=== PATIENT | male | born 2000 | race Caucasian/White ===

== ENCOUNTER 2024-10-30 08:37 | Outpatient (CLI) | payer OTHER, SELFPAY ==
--- NOTE | 2024-10-30 09:00 | CRLHL7_ITS ---
For Patients: As a result of the Century Cures Act, medical imaging exams and procedure reports are released immediately into your electronic medical record. You may view this report before your referring provider. If you have questions, please contact your health care provider. Indication: Chronic sinusitis, drainage more on the left side Technique: Volumetric multidetector CT images of the paranasal sinuses were obtained without the administration of IV contrast. Comparison: None available Findings: The partially visualized brain parenchyma is normal in attenuation with no evidence of midline shift or fluid collection. The frontal sinus and frontal recesses are well aerated. The ethmoid air cells are well aerated. The sphenoid sinus is well aerated. There is minimal chronic polypoid mucosal thickening in the iumr-ifqbbfb-fcen-right mastoid air cells. There is moderate effacement of the brit-cyfxhxg-dnuo-right ostiomeatal unit secondary to large aerated Brenda cells. There is mild leftward nasal septal deviation of the posterior bony nasal septum. Otherwise the nasal passages are clear. Minimal aeration of the bilateral middle turbinates. There is no evidence of acute osseous abnormality. Impression: 1. Minimal chronic polypoid mucosal thickening of the maxillary sinuses without evidence of air-fluid level to suggest acute sinusitis. 2. Moderate bilateral Brenda cells with effacement of the bilateral ostiomeatal units. Please note that all CT scans at this facility use dose modulation, iterative reconstruction, and/or weight-based dosing when appropriate to reduce radiation dose to as low as reasonably achievable. Dictated by Ronnie Pollard MD @ 10/30/2024 9:39:52 AM (Electronically Signed)
== END 2024-10-30 08:38 | disposition home or self-care (01) ==
LOC: CT 08:39
PROVIDERS: Visit Provider Otolaryngology
DX: J32.9 Chronic sinusitis, unspecified (principal); J32.0 Chronic maxillary sinusitis
CPT/HCPCS: 70486

== ENCOUNTER 2024-11-22 10:32 | Day surgery (SDC) | payer OTHER, SELFPAY ==
[2024-11-22] VITALS (13 sets, daily range): BP systolic 117–143; BP diastolic 80–99; PULSE 53–84; RESP 12–16; TEMP 36.2–37.1; O2SAT 94–98; BMI 25.0
[2024-11-22] MEDS: LACTATED RINGERS 500 ML 500 ML 100 ML IV (11:00)
[2024-11-22] MEDS: SODIUM CHLORIDE 0.9 % (FLUSH) 10 ML SYRINGE IVF (11:14)
[2024-11-22] MEDS: OXYMETAZOLINE 0.05% NASAL SPRAY 2 SPRAY NOSTRIL-B (11:35)
[2024-11-22] MEDS: MUPIROCIN 1 GM PACKET 1 APPLIC TOPICAL (12:30)
[2024-11-22] MEDS: BUPIVACAINE 0.5%/EPINEPHRINE 0.9 MG (30.9 ML) INJECTION (12:45)
--- NOTE | 2024-11-22 12:58 | P.ENTPROC_ITS ---
Procedure Note Date of procedure: 11/22/24 Procedure: Preop diagnosis nasal obstruction deviated septum right inferior turbinate hypertrophy bilateral middle turbinate mary bullosa Postop diagnosis same Procedure nasal septoplasty, submucous partial resection right inferior turbinate, endoscopic partial resection bilateral middle turbinate mary bullosa Under general trach anesthesia patient was prepped and draped usual fashion nose decongested injected. A right hemitransfixion incision was made left anterior tunnels were created. Right anterior tunnels were also created. The anterior septum was quite tortuous and curled. I was able to unfurl it with only minimal resection of an anterior strip of 1 mm. The incision was closed with 2 of 5 0 Vicryl short-acting sutures. In addition there was a left area 4 5 impaction. The mucosa overlying this was elevated and the impaction infractured and then removed. A piece was trimmed and returned to intraseptal space in the flap laid back down. Silastic stents were secured with 3-0 nylon. A stab incision was made in the anterior of the right inferior turbinate a tunnel created with a Crockett dissector. The mary bone was outfractured a conservative anterior submucous resection performed. The Coblation Wand was us ed for hemostasis and to cauterize intramurally along the inferior 10% Further main or procedure 0 degree endoscopy was available. The left middle turbinate mary was incised along its inferolateral aspect in the bone infractured and the turbinate crushed with the Vignesh forceps. This was repeated on the left side in identical fashion. Merocel packing coated in Bactroban was trimmed and placed in each side of the nose. Strings were taped externally to facilitate removal. The patient procedure was taken recovery satisfactory condition. Blood loss was less than 10 mL. Surgeon: Krzysztof Mayer MD
--- NOTE | 2024-11-22 13:13 | P.ANES_ITS ---
Anesthesia Charges Start Date/Time Anesthesia Start Date: 11/22/24 Anesthesia Start Time: 12:09 Stop Date/Time Anesthesia Stop Date: 11/22/24 Anesthesia Stop Time: 13:12 Coding CPT Codes CPT Codes: ANESTH NOSE/SINUS SURGERY - 28052 ([id number]) P2 - PATIENT W/MILD SYST DISEASE, QK - COAL WASHER TENDER 2-4 CNCRNT ANES PROC, QX - FOOD AND BEVERAGE LEAD SVC W/ MD MED DIRECTION
--- NOTE | 2024-11-22 13:13 | W.ANESCHARGE ---
Anesthesia Charges Start Date/Time Anesthesia Start Date: 11/22/24 Anesthesia Start Time: 12:09 Stop Date/Time Anesthesia Stop Date: 11/22/24 Anesthesia Stop Time: 13:12 Coding CPT Codes CPT Codes: ANESTH NOSE/SINUS SURGERY - 06050 ([id number]) P2 - PATIENT W/MILD SYST DISEASE, QK - ANALYSIS TESTER 2-4 CNCRNT ANES PROC, QX - TECHNICAL PLANNER SVC W/ MD MED DIRECTION
--- NOTE | 2024-11-22 13:41 | SUR.PHASEI ---
patient met discharge criteria per anesthesia
--- NOTE | 2024-11-22 13:44 | P.ANES_ITS ---
Anesthesia Charges Start Date/Time Anesthesia Start Date: 11/22/24 Anesthesia Start Time: 12:09 Stop Date/Time Anesthesia Stop Date: 11/22/24 Anesthesia Stop Time: 13:12 Coding CPT Codes CPT Codes: ANESTH NOSE/SINUS SURGERY - 34081 ([id number]) QK - CIDER PRESS OPERATOR 2-4 CNCRNT ANES PROC, QX - HEALTHCARE NETWORK CONSULTANT SVC W/ MD MED DIRECTION, P2 - PATIENT W/MILD SYST DISEASE
--- NOTE | 2024-11-22 13:44 | W.ANESCHARGE ---
Anesthesia Charges Start Date/Time Anesthesia Start Date: 11/22/24 Anesthesia Start Time: 12:09 Stop Date/Time Anesthesia Stop Date: 11/22/24 Anesthesia Stop Time: 13:12 Coding CPT Codes CPT Codes: ANESTH NOSE/SINUS SURGERY - 34984 ([id number]) QK - ENCEPHALOGRAPHER 2-4 CNCRNT ANES PROC, QX - MANAGER PROTEIN SVC W/ MD MED DIRECTION, P2 - PATIENT W/MILD SYST DISEASE
[2024-11-22] MEDS: IBUPROFEN 200 MG TABLET PO (14:00)
== END 2024-11-22 15:13 | disposition home or self-care (01) ==
LOC: OR 10:33
PROVIDERS: Visit Provider Otolaryngology
PROC: (CPT 31231; principal; 2024-11-22 12:00)
DX: J34.2 Deviated nasal septum (principal); J34.3 Hypertrophy of nasal turbinates; J34.89 Other specified disorders of nose and nasal sinuses
CPT/HCPCS: 30520; 30140; 31240; 00160; A9270; J0330; J1100; J1630; J2405; J2704; J3010; J7120